=== PATIENT | male | born 1995 | race African-American/Black ===

== ENCOUNTER 2017-11-27 05:01 | Emergency (ER) | payer OTHER ==
[~2017-11-27] VITALS: Ht 190.5 cm; Wt 108.9 kg
--- NOTE | ~2017-11-27 | EKG ---
[address] [place] [address] ELECTROCARDIOGRAM REPORT Name: WESLEY LIZARRAGA Room #: DEP [place] Bar#: [id number] Admission: 11/27/17 Attend Phys: Discharge: 11/27/17 Date of : [birth year] Report #: [id number] THIS REPORT FOR: //name// [facility] ED Test Date: 2017-11-27 Test Time: 06:04:09 Pat Name: WESLEY LIZARRAGA Department: Room: Gender: M Cabinetmaker Apprentice: nathalie : 1995 Requested By: Kevin Chowdhury Order Number: [id number] MD: Tod Olmos Measurements Intervals [place] Rate: 82 P: 18 WI: 179 QRS: 53 QRSD: 85 T: 7 QT: 352 QTc: 411 Interpretive Statements Sinus rhythm ST elevation, likely early repolarization Baseline wander in lead(s) V6 No previous ECG available for comparison Electronically Signed On 11-27-2017 16:58:20 CDT by Tod Olmos [email or web address] <ELECTRONICALLY SIGNED> By: Tod Olmos MD 11/27/17 [id number] 3 Tod Olmos MD /XENA
[2017-11-27 06:00] LABS: ABSOLUTE NEUTROPHILS 4.1 thou/uL (1.4-8.2); BASOPHILS 1.2 % (0.0-2.0); EOSINOPHILS 2.4 % (0.0-3.0); HEMATOCRIT 43.5 % (42.0-52.0); MCHC 34.6 g/dL (28.0-37.0); MONOCYTES 6.9 % (1.0-8.0); PLATELET COUNT 339 thou/uL (150-400); POLYS 58.5 % (36.0-66.0); RBC 5.18 mil/uL (4.50-6.00); RDW 13.2 % (10.5-14.5); WBC 6.9 thou/uL (4.0-11.0)
[2017-11-27 06:02] LABS: BE(vivo) 0.6 mmol/L (-2 to +3); HCO3 24.7 mmol/L (22.0-26.0); PCO2 VENOUS 38.3 mmHg (41.0-51.0); PO2 VENOUS 81.5 mmHg (35.0-45.0)
[2017-11-27 06:12] LABS: CALCIUM 8.9 mg/dL (8.5-10.1); POTASSIUM 3.6 mmol/L (3.5-5.1)
[2017-11-27 06:17] LABS: ALBUMIN 3.6 g/dL (3.4-5.0); TOTAL BILIRUBIN 0.2 mg/dL (<0.1-1.0); TOTAL PROTEIN 8.1 g/dL (6.4-8.2)
[2017-11-27 06:54] VITALS: BP 130/73
== END 2017-11-27 06:55 | disposition home or self-care (01) ==
LOC: ER 05:01
PROVIDERS: Emergency Medicine
DX: R42 Dizziness and giddiness (principal); R53.83 Other fatigue; R11.10 Vomiting, unspecified; R06.02 Shortness of breath; F17.210 Nicotine dependence, cigarettes, uncomplicated

== ENCOUNTER 2018-02-07 04:27 | Emergency (ER) | payer OTHER ==
[~2018-02-07] VITALS: Ht 190.5 cm; Wt 112.0 kg
[2018-02-07 04:47] LABS: URINE BILIRUBIN NEGATIVE (Negative); URINE BLOOD NEGATIVE (Negative); URINE CLARITY CLEAR; URINE COLOR YELLOW; URINE GLUCOSE-RANDOM* NEGATIVE (Negative); URINE KETONES NEGATIVE (Negative); URINE LEUKOCYTES-REFLEX NEGATIVE (Negative); URINE NITRITE-REFLEX NEGATIVE (Negative); URINE PROTEIN (DIPSTICK) NEGATIVE (Negative); URINE SPECIFIC GRAVITY >= 1.030 (1.005-1.035); URINE UROBILINOGEN 0.2 E.U./dl (0.2-1.0)
[2018-02-07] MEDS ORDERED: DOXYCYCLINE 10100 MG PO (05:56)
[2018-02-07 06:19] VITALS: BP 144/89
== END 2018-02-07 06:19 | disposition home or self-care (01) ==
LOC: ER 04:27
PROVIDERS: Student in an Organized Health Care Education/Training Program
DX: N45.1 Epididymitis (principal); F17.210 Nicotine dependence, cigarettes, uncomplicated

== ENCOUNTER 2018-11-15 01:31 | Emergency (ER) | payer OTHER ==
[~2018-11-15] VITALS: Ht 190.5 cm; Wt 104.3 kg
[~2018-11-15 01:31] MED LIST: DOXYCYCLINE 10100 MG PO
[2018-11-15 02:06] LABS: URINE BILIRUBIN NEGATIVE (Negative); URINE BLOOD NEGATIVE (Negative); URINE CLARITY CLEAR; URINE COLOR YELLOW; URINE GLUCOSE-RANDOM* NEGATIVE (Negative); URINE KETONES NEGATIVE (Negative); URINE LEUKOCYTES-REFLEX TRACE (Negative); URINE NITRITE-REFLEX NEGATIVE (Negative); URINE PROTEIN (DIPSTICK) NEGATIVE (Negative); URINE SPECIFIC GRAVITY 1.025 (1.005-1.035)
[2018-11-15 02:53] VITALS: BP 137/83
== END 2018-11-15 02:54 | disposition home or self-care (01) ==
LOC: ER 01:31
PROVIDERS: Emergency Medicine
DX: Z11.3 Encounter for screening for infections with a predominantly sexual mode of transmission (principal); N50.89 Other specified disorders of the male genital organs; F17.210 Nicotine dependence, cigarettes, uncomplicated; Z91.013 Allergy to seafood